=== PATIENT | female | born 1960 | race Two or more races ===

== ENCOUNTER 2024-10-14 12:57 | Emergency (ER) | payer MEDICAID, SELFPAY ==
[2024-10-14 13:10] VITALS: BP 147/85; PULSE 65; RESP 16; TEMP 36.6; O2SAT 98; BMI 34.9
--- NOTE | 2024-10-14 14:35 | XR_ITS ---
Examination: Duplex scan of the lower extremity, unilateral right Date and time of exam: October 14, 2024 1532 hrs. Indications: Right leg pain beginning 3 days ago Technique: Duplex scan of the extremity veins using B-mode/grayscale imaging and Doppler spectral analysis and color flow Attention is directed to internal echogenicity, compression and augmentation involving these veins, color flow assessment, spectral analysis Findings: Major deep venous structures in the extremity demonstrate normal course and caliber. There is no evidence of deep vein thrombosis. Normal color flow and spectral analysis 3.9 cm popliteal cyst Impression: Negative for DVT..
--- NOTE | 2024-10-14 14:35 | XR_ITS ---
Examination: Tibia-Fibula, right , 2 views Technique: Tibia-fibula AP lateral 2 views Date and time of exam: October 14, 2024 1440 hrs. Indications: Injury to the leg 3 days ago with leg pain Findings: No acute fracture No dislocation No foreign body Impression: No acute fracture
--- NOTE | 2024-10-14 14:36 | PD.EDRME ---
Rapid Medical Screening Exam RME Arrival date/time: 10/14/24 12:57 Chief Complaint: Extremity Injury, Lower Time Seen by Provider: 10/14/24 14:21 Vital signs: Vital Signs Temperature 97.8 F 10/14/24 13:10 Pulse Rate 65 10/14/24 13:10 Respiratory Rate 16 10/14/24 13:10 Blood Pressure 147/85 H 10/14/24 13:10 Pulse Oximetry (%) 98 10/14/24 13:10 Oxygen Delivery Method Room Air 10/14/24 13:10 Vital signs reviewed by provider: Yes RME Narrative: 64-year-old female presents with right leg pain and swelling x 2 days. Denies injury and previous trauma. Denies history of blood clots. Denies chest pain and shortness of breath. Denies recent travel.
[2024-10-14] MEDS: HYDROcodone/APAP 5/325 TABLET 1 TAB PO (15:04)
--- NOTE | 2024-10-14 18:52 | EDNOTE_ITS ---
Lower Extremity Injury RME/HPI General Chief Complaint: Extremity Injury, Lower Stated Complaint: R LOWER LEG PAIN X 3 DAYS. NO INJURY Time Seen by Provider: 10/14/24 14:21 Arrival date/time: 10/14/24 12:57 RME / HPI RME / HPI Narrative: 64-year-old female presents with right leg pain and swelling x 2 days. Denies injury and previous trauma. Denies history of blood clots. Denies chest pain and shortness of breath. Denies recent travel. This section includes all my notes and documentations, including HPI, PE, and ED course. Ney Williamson MD HPI: 64-year-old female here with several days of right knee injury. No known injury. Has trouble walking on it due to pain. No redness or warmth. No other complaints. ROS: Musculoskeletal: negative except as documented in HPI. Skin: negative except as documented in HPI. Neurological: negative except as documented in HPI. Physical Exam: General: Alert and oriented. No acute distress when remaining still. Eyes: Conjunctivae and lids clear. Lungs: No respiratory distress. Skin: Warm and dry. Neuro: Alert and oriented X 3. Right Knee: Equivocal bony tenderness. Moderate edema. Limited range of motion due to pain. I reviewed all diagnostic test results. My interpretation of the x-rays is no acute fracture. My review of the US report is no DVT. At this point, diagnoses include right knee sprain. Treatment here included ibuprofen and lidocaine patches and knee immobilizer and crutches. Recommended conservative treatment. Based on my best medical judgment, made decision no further evaluation or treatment indicated at this time. Patient understands and agrees to the discharge instructions customized and printed, see below. Discharge Instructions from Dr. Williamson: --After evaluation, there is no broken bone. --You sprained your knee.? This means small tears to your soft structures, such as yrzudip-vpvbryf-zlolnidrm-cartilage.? --To help the healing process, minimal weight bearing (knee immobilizer and crutches) and elevate above waist level for 3 days as much as possible.?? --Apply ice for 20 minutes every 2-3 hours today and tomorrow.? --Take Ibuprofen 800 mg every 6-8 hours today and tomorrow to help decrease swelling then as needed.? And nofr-olk-tmsgzsg lidocaine patches. --Most importantly, see a private doctor on 10/19/2024 for recheck and further care. If you are not better, you will need more care not available here in the ER--such as MRI imaging.? To make sure you don't have major tears needing surgery--cannot see big tears on x-rays.?? --Seek immediate medical care with any concerns.?? Related Data Previous Rx's ?Medication ?Instructions ?Recorded naproxen 500 mg tablet 500 mg PO BID #30 tabs 03/10/24 Allergies Allergy/AdvReac Type Severity Reaction Status Date / Time No Known Allergies Allergy Verified 10/14/24 12:58 Course Quality Measures none Orders Category Date Time Status Apply knee immobilizer NOW Care 10/14/24 18:42 Active Crutches .NOW Care 10/14/24 18:42 Active US venous doppler LE RT Stat Exams 10/14/24 14:35 Completed XR tibia fibula RT 2V Stat Exams 10/14/24 14:35 Completed HYDROcodone*/APAP 5/325 [[place] 5/325] Med 10/14/24 14:35 Discontinued 1 tab PO X1 ONE Ibuprofen Tab [Motrin Tab] Med 10/14/24 18:42 Discontinued 800 mg PO X1 ONE Lidocaine 5% Patch Med 10/14/24 18:42 Discontinued 2 patch TOP X1 ONE Vital Signs Vital signs: Vital Signs Temperature 97.8 F 10/14/24 13:10 Pulse Rate 65 10/14/24 13:10 Respiratory Rate 16 10/14/24 13:10 Blood Pressure 147/85 H 10/14/24 13:10 Pulse Oximetry (%) 98 10/14/24 13:10 Oxygen Delivery Method Room Air 10/14/24 13:10 Extremity Injury, Lower Patient data External records reviewed:: [facility] previous records Clinical information provided by:: patient Social determinants that could affect healthcare access:: none Patient has the following chronic illnesses:: See chart How is presenting disease/condition affected by chronic disease/condition?: uneffected by Evaluation data The following diagnostics were reviewed and interpreted by me:: radiology exam(s) Lab and/or radiology exams considered but not ordered:: None Interpretation Summary: Knee sprain Medications / Prescriptions Medications or Prescriptions considered but not ordered:: None Medication administrations:: Medication Administration History Discontinued Medications Hydrocodone Bitart/Acetaminophen (Hydrocodone/Apap 5/325 Tablet) 1 tab PO X1 ONE Stop: 10/14/24 14:36 Last Admin: 10/14/24 15:04 Dose: 1 tab Documented By: DD Ibuprofen (Ibuprofen Tab 400 Mg Tablet) 800 mg PO X1 ONE Stop: 10/14/24 18:43 Lidocaine (Lidocaine 5% 1 Patch) 2 patch TOP X1 ONE Stop: 10/14/24 18:43 See chart Consultations Consultation(s) initiated? (list below): No Diagnosis Extremity Injury, Lower Differential Diagnosis: ankle sprain and strain and ankl e fracture Most likely diagnosis given after review of the tests above:: Knee sprain Admission Indicated Admission indicated?: not indicated Admission Request Was there a request for admission?: No Disposition Plan Disposition Plan: Discharge Discharge Attestation Discharge Attestation: The patient and all family members were given an opportunity to ask questions and understood the discharge instructions. Discharge instructions specifically effects, indications for sooner follow up or return to the emergency department, and the expected course of current diagnosis. Patient condition: Stable Discharge Plan Plan Patient Disposition: HOME (Self Care) Prescriptions/Referrals Prescriptions/Med Rec: No Action naproxen 500 mg tablet 500 mg PO BID Qty: 30 0RF Referrals: Valorie Montes FNP [Primary Care Provider] - In 1 week Problem List Clinical Impression: Right knee sprain Patient/Caregiver Discharge Instructions Discharge Activity: activity as tolerated Education Materials: ED Knee Sprain Additional Instructions: Discharge Instructions from Dr. Williamson: --After evaluation, there is no broken bone. --You sprained your knee.? This means small tears to your soft structures, such as qigtamg-mjfhlnw-kvvaukdxh-cartilage.? --To help the healing process, minimal weight bearing (knee immobilizer and crutches) and elevate above waist level for 3 days as much as possible.?? --Apply ice for 20 minutes every 2-3 hours today and tomorrow.? --Take Ibuprofen 800 mg every 6-8 hours today and tomorrow to help decrease swelling then as needed.? And tnvz-jqy-oelzhgo lidocaine patches. --Most importantly, see a private doctor on 10/19/2024 for recheck and further care. If you are not better, you will need more care not available here in the ER--such as MRI imaging.? To make sure you don't have major tears needing surgery--cannot see big tears on x-rays.?? --Seek immediate medical care with any concerns.?? Print Language: Albanian Stand Alone Forms: [employer] Award Info., Patient Portal Info Letter
[2024-10-14] MEDS: LIDOCAINE 5% 1 PATCH 2 PATCH TOP (19:19)
[2024-10-14] MEDS: IBUPROFEN TAB 400 MG TABLET 800 MG PO (19:19)
[2024-10-14 19:29] VITALS: RESP 18
== END 2024-10-14 19:30 | disposition home or self-care (01) ==
PROVIDERS: Emergency Provider Emergency Medicine; PCP Nurse Practitioner Family
DX: S83.91XA Sprain of unspecified site of right knee, initial encounter (principal); M79.604 Pain in right leg; X58.XXXA Exposure to other specified factors, initial encounter
CPT/HCPCS: 73590; 93971; 99284; A9270

== ENCOUNTER → 2025-01-17 | Outpatient (CLI) | payer MEDICAID, SELFPAY ==
--- NOTE | 2025-01-17 07:30 | XR_ITS ---
Examination: MRI lumbar spine without contrast Date and time of exam: January 17, 2025 0811 hrs. Indications: Low back pain radiating down the left leg 4 years Technique: Multiple MRI axial and sagittal sections lumbar spine. Sagittal T2-weighted images, TR 3500, TE 118 T1 weighted transverse sections, TR 688 T8.5, T2-weighted sagittal sections T1 weighted sagittal sections TR 621, TE 30 T2 axial sections, TR 4, 190, TE 84. Findings: Minimal anterolisthesis L4 on L3 2 mm No lumbar fracture Diffuse lumbar disc desiccation Moderate disc narrowing L3-L4, L5-S1 L5-S1 5 mm central lumbar disc bulge extending to the foraminal regions but no ganglionic compression L4-L5 3 mm foraminal disc bulges no ganglionic compression L3-L4 5 mm right foraminal disc bulge producing mild right L3 ganglionic compression L2-L3 no disc protrusion L1-L2 no disc protrusion Impression: L5-S1 5 mm central lumbar disc bulge L4-L5 3 mm foraminal disc bulges L3-L4 5 mm right foraminal disc bulge producing mild right L3 ganglionic compression
== END | disposition home or self-care (01) ==
PROVIDERS: PCP Student in an Organized Health Care Education/Training Program; Referring Provider Podiatrist; Visit Provider Podiatrist
DX: M51.369 Other intervertebral disc degeneration, lumbar region without mention of lumbar back pain or lower extremity pain (principal); M51.379 Other intervertebral disc degeneration, lumbosacral region without mention of lumbar back pain or lower extremity pain; G95.20 Unspecified cord compression
CPT/HCPCS: 72148